=== PATIENT | male | born 1955 | race Caucasian/White ===

== ENCOUNTER → 2019-11-10 13:35 | Outpatient (BNVA) | payer OTHER, SELFPAY | PROVIDERS: Family Provider Family Medicine; PCP Family Medicine; Visit Provider Urology | DX: C67.9 Malignant neoplasm of bladder, unspecified (principal); D09.0 Carcinoma in situ of bladder; N40.1 Benign prostatic hyperplasia with lower urinary tract symptoms; N13.8 Other obstructive and reflux uropathy | CPT/HCPCS: 81001 ==

== ENCOUNTER → 2020-03-08 15:14 | Outpatient (BNVA) | payer OTHER, SELFPAY | PROVIDERS: Family Provider Family Medicine; PCP Family Medicine; Visit Provider Urology | DX: D09.0 Carcinoma in situ of bladder (principal); N40.1 Benign prostatic hyperplasia with lower urinary tract symptoms; N13.8 Other obstructive and reflux uropathy | CPT/HCPCS: 81001 ==

== ENCOUNTER → 2020-08-09 15:22 | Outpatient (BNVA) | payer OTHER, SELFPAY | PROVIDERS: Family Provider Family Medicine; PCP Family Medicine; Visit Provider Urology | DX: D09.0 Carcinoma in situ of bladder (principal); N40.1 Benign prostatic hyperplasia with lower urinary tract symptoms; N13.8 Other obstructive and reflux uropathy | CPT/HCPCS: 81003 ==

== ENCOUNTER 2020-12-15 09:20 | Outpatient (CLI) | payer OTHER, SELFPAY ==
--- NOTE | 2020-12-15 09:27 | XR_ITS ---
WS: [id number] CHEST 2 VIEWS HISTORY: GASTRO-ESOPHAGEAL REFLUX DISEASE WITH ESOPHAGITIS COMPARISON: 05/09/2016 Lungs: Hyperexpanded lungs from emphysema. Pleural-based mass with obtuse angles in the RIGHT mid tho rax is unchanged since 05/09/2016. Subsegmental atelectasis at the lung bases. No pleural effusion or n ew mass. Cardiac size: Normal. Mediastinum/Aorta: Normal mediastinum. Bones: Normal. XR/XR chest 2V* [id number] IMPRESSION: 1. Chronic emphysema. 2. Pleural-based mass in the mid RIGHT thorax is stable since 2016. 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
== END 2020-12-15 09:21 | disposition home or self-care (01) ==
PROVIDERS: PCP Family Medicine; Visit Provider Specialist
DX: K21.00 Gastro-esophageal reflux disease with esophagitis, without bleeding (principal); J43.9 Emphysema, unspecified; D48.7 Neoplasm of uncertain behavior of other specified sites
CPT/HCPCS: 71046

== ENCOUNTER 2020-12-28 07:56 | Outpatient (CLI) | payer OTHER, SELFPAY ==
--- NOTE | 2020-12-28 08:15 | CT_ITS ---
WS: [id number] CT NECK TECHNIQUE: Noncontrast CT of the neck with coronal and sagittal reformatted images. CLINICAL INFORMATION: GASTRO-ESOPHAGEAL REFLUX DISEASE WITH ESOPHAGITIS COMPARISON: None. DLP: 3203.[address] scans at [facility] use at least one of these dose optimization techniques: automat ed exposure control; mA and/or kV adjustment per patient size (includes targeted exams where dose is matched to clinical indication); or iterative reconstruction. FINDINGS: No cervical lymphadenopathy. Normal submandibular glands. Normal parotid glands. Tongue base appears normal. Artifact degrades some images at the tongue base. Normal posterior nasopharynx. Normal paraph aryngeal fat. No evidence of supraglottic or glottic mass. Partially visualized intracranial contents are normal. Mastoid air cells and paranasal sinuses are we ll aerated. No cervical lymphadenopathy. Lung apices are well aerated. Normal subglottic larynx. Part ially visualized thoracic esophagus appears normal. CT/CT neck wo con [id number] IMPRESSION: 1. No acute neck findings. 2. No cervical lymphadenopathy. 3. Normal submandibular glands and parotid glands. 4. Paranasal sinuses and mastoid air cells are well aerated. 5. No evidence of supraglottic or glottic mass. 6. No other significant findings.
== END 2020-12-28 07:57 | disposition home or self-care (01) ==
LOC: RADWPI 08:04
PROVIDERS: PCP Family Medicine; Visit Provider Specialist
DX: K21.00 Gastro-esophageal reflux disease with esophagitis, without bleeding (principal); R05 Cough
CPT/HCPCS: 70490; 87635

== ENCOUNTER 2021-01-03 08:00 | Outpatient (CLI) | payer OTHER, SELFPAY ==
--- NOTE | 2021-01-03 11:15 | PFTS_ITS ---
Date of Study:01/03/21 Date of Dictation: 01/05/2021 MECHANICS: Prebronchodilator forced vital capacity (FVC) is reduced. Prebronchodilator forced expiratory volume in one second (FEV1) is moderately reduced 56%. FEV1/FVC is reduced. Postbronchodilator study not performed. FLOW VOLUME LOOP: Severe sloping of expiratory limb suggestive of airway obstruction LUNG VOLUMES: Not measured DIFFUSING CAPACITY FOR CARBON MONOXIDE: Not measured . INTERPRETATION: The spirometry suggestive of moderate obstructive ventilatory defect. Correlate clinically. MTDD
== END 2021-01-03 08:01 | disposition home or self-care (01) ==
PROVIDERS: PCP Family Medicine; Visit Provider Specialist
DX: K21.00 Gastro-esophageal reflux disease with esophagitis, without bleeding (principal)
CPT/HCPCS: 94010

== ENCOUNTER → 2021-02-07 14:35 | Outpatient (BNVA) | payer OTHER, SELFPAY | PROVIDERS: PCP Family Medicine; Visit Provider Urology | DX: D09.0 Carcinoma in situ of bladder (principal); N40.1 Benign prostatic hyperplasia with lower urinary tract symptoms; N13.8 Other obstructive and reflux uropathy | CPT/HCPCS: 81003 ==

== ENCOUNTER 2022-02-12 15:24 | Outpatient (CLI) | payer OTHER, SELFPAY ==
--- NOTE | 2022-02-12 15:46 | XR_ITS ---
WS: [id number] CHEST 2 VIEWS HISTORY: Renal cancer follow-up. COMPARISON: 12/15/2020, 05/09/2016 Lungs: Mild hyperinflation of the lungs. Pleural-based nodule with 2 cycles mid RIGHT pleura has been present on prior studies without change. No new nodule. Mild biapical pleural thickening. The config uration of the lung bases is similar to the prior examination. Diaphragms are flattened. Cardiac size: Normal. Mediastinum/Aorta: Mild atherosclerosis aorta. Bones: Normal. XR/XR chest 2V* [id number] IMPRESSION: 1. Chronic emphysema. No pneumonia. 2. Unchanged pleural-based opacification has been present on prior studies barbie ing back to 2016 with no change.
[2022-02-12 17:03] LABS: Alanine Aminotransferase 21 U/L (0-41); Albumin Level 4.6 g/dL (3.5-5.2); Alkaline Phosphatase 87 IU/L (40-130); Anion Gap 14.5 (5-19); Aspartate Amino Transferase 23 U/L (0-40); Blood Urea Nitrogen 14 mg/dL (8-23); Carbon Dioxide 26 mmol/L (22-29); Chloride 101 mmol/L (98-107); Globulin 3.1 g/dL (1.3-4.6); Glomerular Filtration Rate 60.4 mL/min (90-130); Glucose 110 mg/dL (65-115); Osmolality Calculated 285 mOsm/kg (285-295); Potassium 4.5 mmol/L (3.5-5.1); Prostate Specific Antigen Scr 0.48 ng/mL (0-4); Sodium 137 mmol/L (136-145); Total Bilirubin 0.4 mg/dL (0.15-1.2); Total Protein 7.7 g/dL (6.6-8.7)
== END 2022-02-12 15:25 | disposition home or self-care (01) ==
PROVIDERS: PCP Family Medicine; Visit Provider Urology
DX: D09.0 Carcinoma in situ of bladder (principal); J43.9 Emphysema, unspecified; R91.1 Solitary pulmonary nodule; I70.0 Atherosclerosis of aorta
CPT/HCPCS: 71046; 80053; 81003; G0103

== ENCOUNTER 2023-02-18 13:17 | Outpatient (CLI) | payer OTHER, SELFPAY ==
--- NOTE | 2023-02-18 12:45 | US_ITS ---
WS: [id number] RENAL ULTRASOUND HISTORY: ureteral cancer COMPARISON: None available. TECHNIQUE: 2-D and color Doppler imaging of the kidney submitted. Prior RIGHT nephrectomy. No mass in the renal bed. Left kidney: 12.5 cm x 5.1 cm x 5.5 cm. Cortex: 1.0 cm Normal echogenicity with no hydronephrosis or mass. Aorta: Normal. Urinary Bladder: Normal distention. US/US renal BI* [id number] IMPRESSION: 1. Normal LEFT kidney. 2. Status post RIGHT nephrectomy. No recurrent mass in the renal bed.
--- NOTE | 2023-02-18 15:08 | XRR_ITS ---
PROCEDURE INFORMATION: Exam: XR Chest Exam date and time: 02/18/2023 3:17 PM Age: 67 years old Clinical indication: Condition or disease; Other: Ureteral cancer; Prior surgery; Surgery date: 6+ months; Surgery type: Port; Patient HX: Yearly cxr, HX of testicle, bladder, kidney and skin cancer; Additional info: Ureteral cancer, cxr 02/18/23 @ 1:00 pm renal US also TECHNIQUE: Imaging protocol: Radiologic exam of the chest. Views: 2 views. COMPARISON: CR XR chest 2V* [id number] 02/12/2022 3:57 PM FINDINGS: Lungs: Bibasilar atelectasis versus minimal infiltrate suspected. Pleural spaces: Unremarkable. No pleural effusion. No pneumothorax. Heart/Mediastinum: Unremarkable. No cardiomegaly. Bones/joints: Unremarkable. XR/XR chest 2V insp/exp [id number] IMPRESSION: Bibasilar atelectasis versus minimal infiltrate suspected.
[2023-02-18 15:13] LABS: Blood Urea Nitrogen 14 mg/dL (8-23); Calcium 9.9 mg/dL (8.5-10.5); Carbon Dioxide 28 mmol/L (22-29); Chloride 98 mmol/L (98-107); Glomerular Filtration Rate 60.2 mL/min (90-130); Glucose 113 mg/dL (65-115); Osmolality Calculated 285 mOsm/kg (285-295); Sodium 137 mmol/L (136-145)
[2023-02-18 15:24] LABS: PSA Screen - Urology 0.42 ng/mL (0-4)
[2023-02-18 15:48] LABS: Anion Gap 15.6 (5-19); Potassium 4.6 mmol/L (3.5-5.1)
== END 2023-02-18 13:18 | disposition home or self-care (01) ==
PROVIDERS: PCP Family Medicine; Visit Provider Urology
DX: Z85.54 Personal history of malignant neoplasm of ureter (principal); D09.0 Carcinoma in situ of bladder; Z12.5 Encounter for screening for malignant neoplasm of prostate; J98.11 Atelectasis; Z90.5 Acquired absence of kidney
CPT/HCPCS: 36415; 71046; 76770; 80048; 81003; G0103